=== PATIENT | male | born 1985 | race Caucasian/White ===

== ENCOUNTER 2021-11-20 14:34 | Emergency (ER) | payer OTHER ==
[2021-11-20 14:59] VITALS: TEMP 98.2
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
[2021-11-20 16:03] VITALS: BP 142/92; PULSE 100; RESP 18
== END 2021-11-20 15:27 | disposition home or self-care (01) ==
LOC: EC 14:34
DX: Z04.2 Encounter for examination and observation following work accident (principal); V99.XXXA Unspecified transport accident, initial encounter
CPT/HCPCS: 99284